=== PATIENT | female | born 1940 | race Caucasian/White ===

== ENCOUNTER 2016-11-01 11:29 | Emergency (ER) | payer MEDICARE, OTHER ==
[2016-11-01 12:38] LABS: INFLUENZA A NEGATIVE (NEGATIVE); INFLUENZA B NEGATIVE (NEGATIVE)
[2016-11-01] MEDS ORDERED: ALBUTEROL SULFATE (0.083%) 2.5 MG/3 ML NEB INH ONE (14:09)
--- NOTE | 2016-11-01 14:28 | Emergency Department Record ---
History of Present Illness - General Chief Complaint: Cough Stated Complaint: COUGHING Time Seen by Provider: 11/01/16 11:54 Source: Patient Mode of Arrival: Wheelchair Limitations: No limitations - History of Present Illness Initial Comments: pt [facility] because she had an elevated d-dimer. pt has had a cough for a few weeks that is prod green. she is sob. she has congestion. she just got back from [place]. she had 3 days in the car. MD Complaint: Cough, Nasal congestion, Rhinorrhea, Sinus pain Onset/Timin -: Week(s) Consistency: Intermittent Improves With: Nothing Worsens With: Activity Context: Recent travel Associated Symptoms: Cough, Nasal congestion, Shortness of breath Treatments Prior to Arrival: Other (pt was given breathing treatment and steroids in [facility] care) - Related Data Previous Rx's Medication Instructions Recorded Azithromycin [Zithromax] 250 mg PO DAILY #6 tab 11/01/16 Allergies Allergy/AdvReac Type Severity Reaction Status Date / Time yellow dye Allergy Intermediate NAUSEA Verified 11/01/16 11:39 adhesive tape Allergy RASH Verified 11/01/16 11:39 meperidine HCl [From Demerol] Allergy NAUSEA Verified 11/01/16 11:39 nitrofurantoin Allergy RASH Verified 11/01/16 11:39 macrocrystalline [From Macrodantin] Travel Screening - Travel/Exposure Within Last 30 Days Have you traveled within the last 30 days?: Yes Location Detail:: [place] - Travel/Exposure Within Last Year Have you traveled outside the [place] in the last year?: No - Additonal Travel Details Have you been exposed to anyone with a communicable illness?: No - Travel Symptoms Symptom Screening: None Review of Systems Reviewed: No additional complaints except as noted below Constitutional: Reports: As per HPI. Denies: Chills, Fever, Malaise, Night sweats, Weakness, Weight change Eyes: Reports: As per HPI. Denies: Eye discharge, Eye pain, Photophobia, Vision change ENT: Reports: As per HPI. Denies: Congestion, Dental pain, Ear pain, Epistaxis , Hearing loss, Throat pain Respiratory: Reports: As per HPI. Denies: Cough, Dyspnea, Hemoptysis, Stridor, Wheezes Cardiovascular: Reports: As per HPI. Denies: Arrhythmia, Chest pain, Dyspnea on exertion, Edema, Murmurs, Orthopnea, Palpitations, Paroxysmal nocturnal dyspnea, Rheumatic Fever, Syncope Endocrine: Reports: As per HPI. Denies: Fatigue, Heat or cold intolerance, Polydipsia, Polyuria Gastrointestinal: Reports: As per HPI. Denies: Abdominal pain, Constipation, Diarrhea, Hematemesis, Hematochezia, Melena, Nausea, Vomiting Genitourinary: Reports: As per HPI. Denies: Abnormal menses, Discharge, Dyspareunia, Dysuria, Frequency, Hematuria, Incontinence, Retention, Urgency Musculoskeletal: Reports: As per HPI. Denies: Arthralgia, Back pain, Gout, Joint swelling, Myalgia, Neck pain Skin: Reports: As per HPI. Denies: Bruising, Change in color, Change in hair/ nails, Lesions, Pruritus, Rash Neurological: Reports: As per HPI. Denies: Abnormal gait, Confusion, Headache, Numbness, Paresthesias, Seizure, Tingling, Tremors, Vertigo, Weakness Psychiatric: Reports: As per HPI. Denies: Anxiety, Auditory hallucinations, Depression, Homicidal thoughts, Suicidal thoughts, Visual hallucinations Hematological/Lymphatic: Reports: As per HPI. Denies: Anemia, Blood Clots, Easy bleeding, Easy bruising, Swollen glands Past Medical History - SOCIAL HISTORY Smoking Status: Never smoker Alcohol Use: Rare Drug Use: None - RESPIRATORY Hx Respiratory Disorders: No - CARDIOVASCULAR Hx Cardio Disorders: No - NEURO Hx Neuro Disorders: No - GI Hx GI Disorders: No - Hx Genitourinary Disorders: No - ENDOCRINE Hx Endocrine Disorders: No Comment:: Blood tested regularly - MUSCULOSKELETAL Hx Musculoskeletal Disorders: No - PSYCH Hx Psych Problems: No - HEMATOLOGY/ONCOLOGY Hx Hematology/Oncology Disorders: No Family Medical History Any Significant Family History?: No Family Hx Comment (NOT TO BE USED IN PLACE OF ITEMS BELOW): adopted Physical Exam - General General Appearance: Alert, Oriented x3, Cooperative, Mild distress - Head Head exam: Normal inspection - Eye Eye exam: Normal appearance, PERRL, EOMI Pupils: Normal accommodation - ENT ENT exam: Normal exam, Mucous membranes moist, Normal external ear exam, Normal orophraynx Ear exam: Normal external inspection. negative: External canal tenderness Nasal Exam: Normal inspection. negative: Discharge, Sinus tenderness Mouth exam: Normal external inspection, Tongue normal Teeth exam: Normal inspection. negative: Dental caries Throat exam: Normal inspection. negative: Tonsillar erythema, Tonsillar exudate - Neck Neck exam: Normal inspection, Full ROM. negative: Tenderness - Respiratory Respiratory exam: Respiratory distress, Wheezes - Cardiovascular Cardiovascular Exam: Normal rhythm, Normal heart sounds, Tachycardia - GI/Abdominal GI/Abdominal exam: Soft, Normal bowel sounds. negative: Tenderness - Rectal Rectal exam: Deferred - exam: Deferred - Extremities Extremities exam: Normal inspection, Full ROM, Normal capillary refill. negative: Tenderness - Back Back exam: Reports: Normal inspection, Full ROM. Denies: Muscle spasm, Rash noted, Tenderness - Neurological Neurological exam: Alert, CN II-XII intact, Normal gait, Oriented X3 - Psychiatric Psychiatric exam: Normal affect, Normal mood - Skin Skin exam: Dry, Intact, Normal color, Warm Course Vital Signs 11/01/16 14:21 Pulse Rate 102 H Respiratory 16 Rate Pulse Ox 96 Medical Decision Making - Lab Data Lab Results 11/01/16 Range/Units 12:20 Influenza Type A Ag Negative (NEGATIVE) Influenza Type B Ag Negative (NEGATIVE) Disposition Disposition: Discharge Clinical Impression: Bronchitis Disposition: Home, Self-Care Condition: (1) Good Instructions: Acute Bronchitis (ED) Additional Instructions: follow up with family doctor. return sooner if worse. Prescriptions: Azithromycin [Zithromax] 250 mg PO DAILY #6 tab Forms: Patient Portal Access
[2016-11-01] MEDS ORDERED: 0.9% SODIUM CHLORIDE 250ML BAG IV ONE (15:21)
--- NOTE | 2016-11-06 08:25 | CT ANGIOGRAM REPORT ---
EXAM: CTA OF THE CHEST HISTORY: COUGHING. TECHNIQUE: CTA of the chest was performed using pulmonary embolus protocol following IV administration of 55 ml of Omnipaque 350 contrast. Axial images were obtained in coronal and sagittal MIP reconstructions. Comparison: None. Encounter: Initial. FINDINGS: There is no intraluminal filling defect to suggest pulmonary embolus. Negative for thoracic aortic aneurysm or dissection. Mild ectasia and atheromatous change of the thoracic aorta. Nonspecific, nonenlarged mediastinal and hilar lymph nodes. Cardiomegaly. Limited evaluation of the upper abdomen shows partial visualization of a left renal cyst. Fatty infiltrative change to the liver. Hypodensity in the left hepatic lobe measuring 1.1 x 1.0 cm, likely a cyst or hemangioma in the absence of cancer history. No pneumothorax. The visualized airways are patent. The lungs are clear. IMPRESSION: 1. NEGATIVE FOR PULMONARY EMBOLUS, THORACIC AORTIC ANEURYSM, OR DISSECTION. THE LUNGS ARE CLEAR. 2. NONSPECIFIC, NONENLARGED MEDIASTINAL AND HILAR LYMPH NODES. 3. CARDIOMEGALY. 4. PARTIAL VISUALIZATION OF THE LEFT RENAL CYST. PROBABLE CYST OR HEMANGIOMA IN THE LIVER. FATTY INFILTRATIVE CHANGE TO THE LIVER. JOB [facility]BER: [id number] [facility]
== END 2016-11-01 15:56 | disposition home or self-care (01) ==
LOC: ER 11:29
DX: J20.9 Acute bronchitis, unspecified (principal); R06.02 Shortness of breath; R79.89 Other specified abnormal findings of blood chemistry
CPT/HCPCS: 99284 ×2; 85025; 80053; 87400; 85379; 71020; 71275; 94640; Q9967; J7613

== ENCOUNTER 2017-05-26 09:20 | Day surgery (SDC) | payer MEDICARE, OTHER ==
[2017-05-26] MEDS ORDERED: LIDOCAINE 2% MDV (20MG/ML) 20ML VIAL IV ONE (09:21)
[2017-05-26] MEDS ORDERED: PROPOFOL 10 MG/ML VIAL IV ONE (09:21)
[2017-05-26] MEDS ORDERED: FENTANYL PF 100MCG/2ML VIAL IV ONE (09:21)
--- NOTE | 2017-05-27 13:40 | Operative Note ---
DATE OF SURGERY: 05/26/2017 REFERRING PROVIDER: CJ Rivera PREOPERATIVE DIAGNOSIS: See below. POSTOPERATIVE DIAGNOSIS: See below. PROCEDURE: ESOPHAGOGASTRODUODENOSCOPY with biopsy. INDICATION: Right-sided abdominal pain, clinically improved. She states certain foods bother her, including certain foods and vitamins bother her. Upper endoscopy is performed at this time for further evaluation of her pain. Intravenous sedation was administered by the Department of Anesthesiology and included Diprivan titrated to effect. PROCEDURE: Following informed consent from this alert individual, including a discussion of the risks and benefits of the procedure and an opportunity for the patient to ask questions, the patient was placed in the left lateral decubitus position. An Olympus [id number] video endoscope was inserted into the esophagus without resistance. The proximal esophagus had a normal appearance with normal folds and distensibility. The distal esophagus, likewise, was free from changes. The squamocolumnar junction approximated the diaphragmatic hiatus. The structure was traversed, and the stomach was entered. The gastric fundus and pars media had a normal appearance with normal folds and distensibility. The antrum was evaluated circumferentially and demonstrates some mild erythema without ulcerations or erosions noted. Biopsies from the stomach were obtained to assess for Helicobacter pylori and check histology. The pylorus was patent. The duodenal bulb, sweep and descending duodenum were examined in a serial fashion and found to be normal. The endoscope was then withdrawn back into the body of the stomach, where retroflexion accomplished following air insufflation failed to demonstrate any additional changes. The endoscope was then straightened and withdrawn through a normal esophagus. The patient tolerated the procedure well and was returned to the recovery area in stable condition. IMPRESSION: Minimal antral gastritis, biopsies taken. Otherwise, unremarkable endoscopy. RECOMMENDATIONS: Further recommendations forthcoming pending results of biopsy obtained today. Followup also will be with CJ Rivera. As always, thank you for allowing me to participate in the care of your patient. CC: CJ Rivera
--- NOTE | 2017-05-27 13:40 | Operative Note ---
DATE OF SURGERY: 05/26/2017 REFERRING PHYSICIAN: CJ Rivera PREOPERATIVE DIAGNOSIS: See below. POSTOPERATIVE DIAGNOSIS: See below. PROCEDURE: COLONOSCOPY to the cecum with cold biopsy forceps polypectomy. INDICATION: Colorectal cancer screening, right-sided abdominal pain, family history of colon cancer (mother). Intravenous sedation was administered by the Department of Anesthesiology and included Diprivan titrated to effect. PROCEDURE: Following informed consent from this alert individual, including a discussion of the risks and benefits of the procedure and an opportunity for the patient to ask questions, the patient was placed in the left lateral decubitus position. A digital rectal examination was performed. No abnormalities were noted. Following this, an Olympus HTN255 video colonoscope was inserted into the rectum without resistance. The rectal mucosa had a normal appearance, with normal folds and distensibility. The colonoscope was advanced up through the bowel to the level of the cecum without much difficulty. Scattered diverticula were noted throughout the right and left colon. There was a 3-4 mm polyp noted in the descending colon, and this was removed with cold biopsy forceps. The cecum was defined by noting the appendiceal orifice and ileocecal valve. The colon preparation was good. Retroflexion of the cecum failed to demonstrate changes. From this point, the colonoscope was then withdrawn. No additional changes were appreciated. Retroflexion of the rectum failed to demonstrate abnormalities. Slow withdrawal through the anus demonstrated small external hemorrhoids. The instrument was removed. The patient tolerated the procedure well and was returned to the recovery area in stable condition. IMPRESSIONS: 1. A 4 mm descending colon polyp removed with biopsy forceps. 2. Gates diverticulosis. 3. Small external hemorrhoids. RECOMMENDATIONS: The patient was advised she should receive a copy of her pathology report at home in the next 2-3 weeks. If not, she was asked to call my office to review results of testing today. Further recommendations forthcoming pending those results. Followup will also be with CJ Rivera. As always, thank you for allowing me to participate in the care of your patient. CC: CJ Rivera
== END 2017-05-26 12:14 | disposition home or self-care (01) ==
LOC: HOP 09:20
PROVIDERS: ATTEND Internal Medicine Gastroenterology
DX: Z12.11 Encounter for screening for malignant neoplasm of colon (principal); Z80.0 Family history of malignant neoplasm of digestive organs; R10.13 Epigastric pain; D12.4 Benign neoplasm of descending colon; K57.30 Diverticulosis of large intestine without perforation or abscess without bleeding; K64.4 Residual hemorrhoidal skin tags; K29.60 Other gastritis without bleeding

== ENCOUNTER 2017-06-27 08:17 | Observation (INO) | payer MEDICARE, OTHER ==
[2017-06-27] MEDS ORDERED: 0.9 % SODIUM CHLORIDE 1,000 ML BAG IV ONE (08:40)
[2017-06-27] MEDS ORDERED: ONDANSETRON HCL IV 4 MG/2 ML VIAL IV ONE (08:40)
--- NOTE | 2017-06-27 08:44 | Emergency Department Record ---
History of Present Illness - General Chief complaint: Vomiting Stated complaint: VOITING, LOW BACK PAIN Time Seen by Provider: 06/27/17 08:34 Source: Patient Mode of Arrival: Ambulatory Limitations: No limitations - History of Present Illness Initial comments: The patient is here due to a 2-3 day hx of nausea, vomiting yesterday, and lower abdominal pain. The pain is crampy and intermittent and she did vomit 5 times yesterday but had a normal BM yesterday. She denies any fever, chills, dysuria, or hematuria and does have a hx of 2 C-sections and having her Appendix removed. The patient does feel the pain in the low back also at times but has no pain in the legs or any leg numbness or weakness. MD complaint: Abdominal pain, Nausea, Vomiting Onset/Timin -: Days(s) Description of Vomiting: Bilious Description of Diarrhea: Green Associated Abdominal Pain: Yes Location: LLQ, RLQ, Flank Severity: Moderate - Related Data Allergies Allergy/AdvReac Type Severity Reaction Status Date / Time yellow dye Allergy Intermediate NAUSEA Unverified 01/22/17 09:55 adhesive tape Allergy RASH Unverified 01/22/17 09:55 meperidine HCl [From Demerol] Allergy NAUSEA Unverified 01/22/17 09:55 nitrofurantoin Allergy RASH Unverified 01/22/17 09:55 macrocrystalline [From Macrodantin] ibuprofen [From Motrin] AdvReac Unknown SWELLING Unverified 05/21/17 11:08 Travel Screening - Travel/Exposure Within Last 30 Days Have you traveled within the last 30 days?: No Review of Systems Constitutional: Denies: Chills, Fever Eyes: Denies: Eye discharge ENT: Denies: Congestion Respiratory: Denies: Cough, Dyspnea Past Medical History - SOCIAL HISTORY Smoking Status: Former smoker Alcohol Use: None Drug Use: None - RESPIRATORY Hx Respiratory Disorders: No Hx Sleep Apnea: Yes Hx of CPAP: No - CARDIOVASCULAR Hx Cardio Disorders: No - NEURO Hx Neuro Disorders: No - GI Hx GI Disorders: Yes Hx Abdominal Pain: Yes Hx Rectal Bleeding: Yes Hx Ulcer: Yes Hx of Polyps: Yes - Hx Genitourinary Disorders: No - ENDOCRINE Hx Endocrine Disorders: No Comment:: Blood tested regularly - MUSCULOSKELETAL Hx Musculoskeletal Disorders: Yes Hx Arthritis: Yes (? RA) - PSYCH Hx Psych Problems: No - HEMATOLOGY/ONCOLOGY Hx Hematology/Oncology Disorders: No Family Medical History Any Significant Family History?: Yes Family Hx Comment (NOT TO BE USED IN PLACE OF ITEMS BELOW): adopted Hx Cancer: Mother *Cancer Comment: found out bio Mother-colon cancer Physical Exam - General General Appearance: Alert, Oriented x3, Cooperative, No acute distress - Head Head exam: Atraumatic, Normocephalic, Normal inspection - Eye Eye exam: Normal appearance, PERRL - Neck Neck exam: Normal inspection, Full ROM. negative: Tenderness - Respiratory Respiratory exam: Normal lung sounds bilaterally. negative: Respiratory distress - Cardiovascular Cardiovascular Exam: Regular rate, Normal rhythm, Normal heart sounds - GI/Abdominal GI/Abdominal exam: Soft, Tenderness (There is diffuse tenderness in all 4 quads. ). negative: Distended, Guarding, Rebound - Extremities Extremities exam: Normal inspection, Full ROM, Normal capillary refill. negative: Tenderness Course Vital Signs 06/27/17 08:23 Temperature 98.0 F Pulse Rate 118 H Respiratory 13 Rate Blood Pressure 127/92 Pulse Ox 94 L - Reevaluation(s) Reevaluation #1: The patient is doing much better at this time. She states her pain is much improved and she denies any nausea or vomiting presently. I did discuss the CT results and the need for admission and she did agree. 06/27/17 09:55 Reevaluation #2: I did discuss the case with Dr. Holt and he does agree to consult on the case. He will see the patient tonight or in the morning early. I also did discuss the case with Dr. Ruiz and he agrees to admit the patient. 06/27/17 10:42 Medical Decision Making - Data Complexity MDM Data: Labs Ordered and/or Reviewed, X-Ray Ordered and/or Reviewed - Lab Data Result diagrams: 06/27/17 08:43 06/27/17 08:43 - Radiology Data Radiology results: Report reviewed (CT: SBO with no perforation or abscess.) Disposition Disposition: Admit Clinical Impression: SBO (small bowel obstruction) Disposition: Still a Patient at [facility] Decision to Admit: Admit from ER Decision to Admit Date: 06/27/17 Decision to Admit Time: 10:44 Accepting Physician: Karen Time Discussed w/Accepting Physician: 10:44 Condition: (2) Stable Time of Disposition: 10:44 Quality - Quality Measures Quality Measures: N/A - Blood Pressure Screening View Details: Yes Does Patient Have Any of the Following: No Blood Pressure Classification: Hypertensive Reading Systolic Measurement: 127 Diastolic Measurement: 92 Screening for High Blood Pressure: < Pre-Hypertensive BP, F/U Documented > [ [id number]] Pre-Hypertensive Follow-up Interventions: Referral to alternative/primary care provider.
[2017-06-27 08:54] LABS: HEMOGLOBIN 16.1 gm/dl (11.6-16.0); MEAN CELL VOLUME 94.3 fl (81-97); MEAN CORPUSCULAR HEMOGLOBIN 31.6 pg (27-33); MEAN CORPUSCULAR HGB CONC 33.5 g/dl (32-36); MEAN PLATELET VOLUME 10.5 fl (7.4-10.4); PLATELET COUNT 404 K/uL (130-400); RED BLOOD COUNT 5.09 M/uL (3.80-5.40); RED CELL DISTRIBUTION WIDTH 12.9 % (11.5-14.5); WHITE BLOOD COUNT W/O DIFF 19.1 K/uL (4.2-12.2)
[2017-06-27] MEDS ORDERED: HYDROMORPHONE HCL 1MG/ML **SYRINGE IVP ONE ×2 (09:14→11:41)
[2017-06-27 09:22] LABS: BLOOD UREA NITROGEN 16 mg/dL (8-23); CREATININE 0.8 mg/dL (0.5-0.9); EST GLOMERULAR FILTRATION RATE > 60 mL/min
[2017-06-27 09:23] LABS: TOTAL PROTEIN 8.7 g/dL (6.6-8.7)
[2017-06-27 09:25] LABS: GLUCOSE,RANDOM 199 mg/dL (74-109)
[2017-06-27 09:27] LABS: ALBUMIN 4.6 g/dL (4.0-5.0); ALT/SGPT 39 U/L (<33); AST/SGOT 27 U/L (10.0-35.0); BILIRUBIN,DIRECT 0.2 mg/dL (0-0.3)
[2017-06-27 09:28] LABS: ALKALINE PHOSPHATASE 79 U/L (35-104); LIPASE 19 U/L (13-60)
--- NOTE | 2017-06-27 10:04 | CT SCAN REPORT ---
EXAM: CT OF THE ABDOMEN AND PELVIS WITHOUT CONTRAST HISTORY: LOWER ABDOMINAL PAIN, BILATERAL FLANK PAIN, NAUSEA AND VOMITING FOR TWO DAYS. APPENDECTOMY. TECHNIQUE: Axial CT scan of the abdomen and pelvis was performed without oral or IV contrast. Comparison: No prior CT abdomen and pelvis with which to compare. FINDINGS: No calcified gallstones are seen within the gallbladder. No intrarenal calculi is seen on either side. No hydronephrosis or hydroureter is seen on either side. No ureteral calculus seen on either side and no bladder calculus evident. Evaluation of the bowel and viscera is very limited without oral or IV contrast. There is a single small low attenuation mass left lobe of the liver approximately 11 mm in size. This appears essentially unchanged from a prior CTA of the chest dated 11/01/16 and is presumably a small cyst or hemangioma as previously reported. The previously noted cyst partially seen in the upper pole of the left kidney on the prior chest CTA is seen in its entirety today and measures about 2.4 cm in size, incompletely evaluated today without IV contrast, but having a noncontrast CT density of 9 consistent with a cyst. Given the limitations of lack of contrast, no additional hepatic or left renal mass seen. No definite splenic, pancreatic, right renal, or adrenal mass identified. There is moderate diverticulosis in the left side of the colon and less so in the right side of the colon as well, but no definite diverticulitis evident. The appendix is not identified consistent with the surgical history. There is dilatation of the jejunum measuring up to about 4 cm in diameter. There appears to be a point of transition in the low abdomen anteriorly and the distal small bowel is nondilated. Findings are consistent with small bowel obstruction, the etiology which is not clearly seen. There is a history of appendectomy and perhaps this is on the basis of adhesions. Tiny periumbilical anterior abdominal wall hernia containing adipose tissue, but no bowel. No free intraperitoneal air or free intraperitoneal fluid identified. Facet joint arthropathy in the lower lumbar spine. IMPRESSION: 1. POSTOP APPENDECTOMY. 2. APPEARANCE CONSISTENT WITH SMALL BOWEL OBSTRUCTION WITH THE POINT OF TRANSITION IN THE LOW ABDOMEN ANTERIORLY, OF UNCERTAIN ETIOLOGY. 3. DIVERTICULOSIS IN THE COLON PREDOMINANTLY THE LEFT SIDE OF THE COLON, BUT NO DIVERTICULITIS EVIDENT. 4. STABLE 11 MM LOW ATTENUATION MASS LEFT LOBE OF THE LIVER COMPARED WITH , PRESUMABLY A SMALL CYST OR HEMANGIOMA. 5. APPROXIMATELY 2.4 CM LOW ATTENUATION MASS UPPER POLE LEFT KIDNEY IS PRESUMABLY A CYST. THIS IS INCOMPLETELY EVALUATION WITHOUT IV CONTRAST. 6. DEGENERATIVE CHANGE IN THE FACETS OF THE LOWER LUMBAR SPINE. [facility]: [id number] [facility]
--- NOTE | 2017-06-27 11:13 | History & Physical ---
History of Present Illness - Date of Service Date of Service for History & Physical: 06/27/17 - History of Present Illness Admitting Diagnosis: SBO History of Present Illness: Mrs. Nino is a 77 y/o female who is here today due to nausea, vomiting and abdominal pain. The patient describes lower abdominal pain 101/10 in severity which began yesterday while at home. She says that her pain was sharp with radiation to back and followed by five episodes of clear-brown vomit. The patient denies any constipation or diarrhea and says that her last bowel movement which was yesterday morning was normal in consistency any color. She recently had a colonoscopy which she says findings were normal. She is a [facility] patient and her recent labs show elevated liver enzymes and Hba1c 6 but she is not any medications. On arrival to ED the patient's WBC is 19, lactate acid 2.0, and lipase 19. CT abdomen w/o contrast reports small bowel obstruction and diverticulosis. The patient has been started on IV fluids, IV Diluadid, zofran and protonix. General surgery has been consulted for recommendations. Travel Screening - Travel/Exposure Within Last 30 Days Have you traveled within the last 30 days?: No Review of Systems Constitutional: Denies: Chills, Fever Eyes: Denies: Eye discharge ENT: Denies: Congestion Respiratory: Denies: Cough, Dyspnea Gastrointestinal: Reports: Abdominal pain, Nausea, Vomiting. Denies: Constipation, Diarrhea Past Medical History - SOCIAL HISTORY Smoking Status: Former smoker Alcohol Use: None Drug Use: None - RESPIRATORY Hx Respiratory Disorders: No Hx Sleep Apnea: Yes Hx of CPAP: No - CARDIOVASCULAR Hx Cardio Disorders: No - NEURO Hx Neuro Disorders: No - GI Hx GI Disorders: Yes Hx Abdominal Pain: Yes Hx Rectal Bleeding: Yes Hx Ulcer: Yes Hx of Polyps: Yes - Hx Genitourinary Disorders: No - ENDOCRINE Hx Diabetes: Yes Comment:: Blood tested regularly - MUSCULOSKELETAL Hx Musculoskeletal Disorders: Yes Hx Arthritis: Yes (? RA) - PSYCH Hx Psych Problems: No - HEMATOLOGY/ONCOLOGY Hx Hematology/Oncology Disorders: No Family Medical History Any Significant Family History?: Yes Family Hx Comment (NOT TO BE USED IN PLACE OF ITEMS BELOW): adopted Hx Cancer: Mother *Cancer Comment: found out bio Mother-colon cancer H&P Meds/Allergies - Allergies Allergies: Allergies Allergy/AdvReac Type Severity Reaction Status Date / Time yellow dye Allergy Intermediate NAUSEA Unverified 01/22/17 09:55 adhesive tape Allergy RASH Unverified 01/22/17 09:55 meperidine HCl [From Demerol] Allergy NAUSEA Unverified 01/22/17 09:55 nitrofurantoin Allergy RASH Unverified 01/22/17 09:55 macrocrystalline [From Macrodantin] ibuprofen [From Motrin] AdvReac Unknown SWELLING Unverified 05/21/17 11:08 Physical Exam - Vital Signs Vital Signs: Vital Signs - Last 24 Hrs Temp Pulse Pulse Resp BP BP Pulse Ox 06/27/17 09:47 91 H 18 134/71 94 L 06/27/17 08:23 98.0 F 118 H 13 127/92 94 L - General General Appearance: Alert, Oriented x3, Cooperative, No acute distress Limitations: No limitations - Head Head exam: Atraumatic, Normocephalic, Normal inspection Head exam detail: negative: Abrasion, Contusion - Eye Eye exam: Normal appearance, PERRL Pupils: Normal accommodation - ENT ENT exam: Normal exam, Mucous membranes moist, Normal external ear exam, Normal orophraynx, TM's normal bilaterally Nasal Exam: Normal inspection. negative: Discharge, Sinus tenderness Mouth exam: Normal external inspection, Tongue normal Teeth exam: Normal inspection. negative: Dental caries Throat exam: Normal inspection. negative: Tonsillar erythema, Tonsillar exudate - Neck Neck exam: Normal inspection, Full ROM. negative: Tenderness - Respiratory Respiratory exam: Normal lung sounds bilaterally. negative: Respiratory distress - Cardiovascular Cardiovascular Exam: Regular rate, Normal rhythm, Normal heart sounds Peripheral Pulses: 2+: Radial (R), Radial (L), Dorsalis Pedis (R), Dorsalis Pedis (L) - GI/Abdominal GI/Abdominal exam: Soft, Diminished bowel sounds, Tenderness (There is diffuse tenderness in all 4 quads.). negative: Distended, Guarding, Rebound, Rigid - Rectal Rectal exam: Deferred - exam: Deferred - Extremities Extremities exam: Normal inspection, Full ROM, Normal capillary refill. negative: Tenderness - Neurological Neurological exam: Alert, CN II-XII intact, Oriented X3 - Psychiatric Psychiatric exam: Normal affect, Normal mood - Skin Skin exam: Dry, Intact, Normal color, Warm Results - Labs Result Diagrams: 06/27/17 08:43 06/27/17 08:43 Labs Last 24 Hours: Laboratory Results - last 24 hr 06/27/17 06/27/17 06/27/17 08:43 08:43 09:05 WBC 19.1 H RBC 5.09 Hgb 16.1 H Hct 48.0 H MCV 94.3 MCH 31.6 MCHC 33.5 RDW 12.9 Plt Count 404 H MPV 10.5 H Neutrophils % 80.0 Eosinophils % Not Reportable Basophils % Not Reportable Lymphocytes 15.0 L Monocytes 5.0 Sodium 138 Potassium 4.0 Chloride 93 L Carbon Dioxide 28.0 Anion Gap 17.0 H BUN 16 Creatinine 0.8 Estimated GFR > 60 Random Glucose 199 H Lactic Acid 2.0 Calcium 10.3 H Total Bilirubin 1.10 H Direct Bilirubin 0.2 AST 27 ALT 39 H Alkaline Phosphatase 79 Total Protein 8.7 Albumin 4.6 Lipase 19 VTE H&P Assessment - Risk for VTE Risk for VTE: Yes Risk Level: Low Risk Assessment Date: 06/27/17 Risk Assessment Time: 11:57 VTE Orders Placed or Will Be Placed: No VTE Reason for No Prophylaxis: Not Indicated (pt ambulatory no comorbidities ) Plan - Detailed Diagnosis and Plan (1) SBO (small bowel obstruction) Current Visit: Yes Status: Acute Base Code: K56.609 - UNSP INTESTNL OBST, UNSP TO PARTIAL VERSUS COMPLETE OBST Comment: - CT abdomen - small bowel obstruction and diverticulosis. - cont IVF: Nacl 0.9% @ 125mL/hr, zofran 4mg Q4H PRN, Dilaudid 0.5mg Q4H, Protonix 40mg QD - NPO, advance diet as tolerated. Surgery consult pending. (2) Diabetes type 2, uncontrolled Current Visit: Yes Status: Acute Qualifiers: Diabetes mellitus complication status: with ophthalmic complications Diabetes mellitus complication detail: with cataract Diabetes mellitus fci insulin use: without assistant terminal manager use Qualified Code(s): E11.36 - Type 2 diabetes mellitus with diabetic cataract; E11.65 - Type 2 diabetes mellitus with hyperglycemia; E11.65 - Type 2 diabetes mellitus with hyperglycemia; E11.65 - Type 2 diabetes mellitus with hyperglycemia; E11.65 - Type 2 diabetes mellitus with hyperglycemia Base Code: E11.65 - TYPE 2 DIABETES MELLITUS WITH HYPERGLYCEMIA Comment: - Hba1c 6, serum glucose 199, inpatient goal 140-180 - not on any glycemic medications at this time. - will order sliding scale and initiate PO meds on d/c. - accuchecks Q12H (3) Full code status Current Visit: Yes Status: Acute Base Code: Z78.9 - OTHER SPECIFIED HEALTH STATUS Comment: FULL CODE - Disposition Pending surgical consult, bowel rest and pain control.
[2017-06-27 12:06] LABS: URINE APPEARANCE CLEAR; URINE BILIRUBIN SMALL (NEGATIVE); URINE BLOOD NEGATIVE (NEGATIVE); URINE COLOR YELLOW; URINE GLUCOSE (UA) NEGATIVE (NEGATIVE); URINE KETONE NEGATIVE (NEGATIVE); URINE LEUKOCYTE ESTERASE NEGATIVE (NEGATIVE); URINE NITRITE NEGATIVE (NEGATIVE); URINE PROTEIN NEGATIVE (NEGATIVE); URINE UROBILINOGEN 0.2 E.U./dL (0.20 - 1.00)
[2017-06-27] MEDS ORDERED: ONDANSETRON HCL IV 4 MG/2 ML VIAL IVP PRN (12:16)
[2017-06-27] MEDS: 0.9 % SODIUM CHLORIDE 1000ML 1,000 ML IV PRN ×2 (12:33→20:58)
[2017-06-27] MEDS: PANTOPRAZOLE SODIUM IV 40 MG VIAL IV SCH (12:35)
[2017-06-27] MEDS: HYDROMORPHONE HCL 1MG/ML **SYRINGE IVP PRN ×2 (16:43→22:38)
[2017-06-28] MEDS: 0.9 % SODIUM CHLORIDE 1000ML 1,000 ML IV PRN (04:54)
[2017-06-28 06:13] LABS: BASO % 0.2 % (0-6); EOS % 2.2 % (0-6); GRAN % 70.4 % (47-80); HEMATOCRIT 37.6 % (35.0-47.0); LYMPH % 20.9 % (16-45); MEAN CELL VOLUME 96.7 fl (81-97); MEAN CORPUSCULAR HEMOGLOBIN 30.8 pg (27-33); MEAN CORPUSCULAR HGB CONC 31.9 g/dl (32-36); MEAN PLATELET VOLUME 10.5 fl (7.4-10.4); MONO % 6.3 % (0-9); PLATELET COUNT 301 K/uL (130-400); RED BLOOD COUNT 3.89 M/uL (3.80-5.40); RED CELL DISTRIBUTION WIDTH 12.8 % (11.5-14.5)
[2017-06-28 06:28] LABS: BLOOD UREA NITROGEN 12 mg/dL (8-23); CREATININE 0.6 mg/dL (0.5-0.9); EST GLOMERULAR FILTRATION RATE > 60 mL/min; GLUCOSE,RANDOM 124 mg/dL (74-109)
--- NOTE | 2017-06-28 10:59 | Discharge Summary ---
Providers Discharge Summary Date: 06/28/17 Date of admission: 06/27/17 12:05 Attending physician: Tam Jones Primary care physician: Pallavi Sahni Physical Exam - Vital Signs Vital Signs: Vital Signs - Last 24 Hrs Temp Pulse Resp BP BP Pulse Ox 06/28/17 10:00 98 F 75 18 113/70 94 L 06/28/17 06:00 98.9 F 79 16 94/58 93 L 06/27/17 21:00 98.4 F 81 16 105/67 94 L 06/27/17 18:16 97.7 F 80 16 103/66 94 L 06/27/17 14:16 97.7 F 79 19 94/56 93 L 06/27/17 12:16 97.7 F 85 18 117/87 93 L 06/27/17 12:07 89 18 117/70 92 L - General General Appearance: Alert, Oriented x3, Cooperative, No acute distress Limitations: No limitations - Head Head exam: Atraumatic, Normocephalic, Normal inspection Head exam detail: negative: Abrasion, Contusion - Eye Eye exam: Normal appearance, PERRL Pupils: Normal accommodation - ENT ENT exam: Normal exam, Mucous membranes moist, Normal external ear exam, Normal orophraynx, TM's normal bilaterally Nasal Exam: Normal inspection. negative: Discharge, Sinus tenderness Mouth exam: Normal external inspection, Tongue normal Teeth exam: Normal inspection. negative: Dental caries Throat exam: Normal inspection. negative: Tonsillar erythema, Tonsillar exudate - Neck Neck exam: Normal inspection, Full ROM. negative: Tenderness - Respiratory Respiratory exam: Normal lung sounds bilaterally. negative: Respiratory distress - Cardiovascular Cardiovascular Exam: Regular rate, Normal rhythm, Normal heart sounds Peripheral Pulses: 2+: Radial (R), Radial (L), Dorsalis Pedis (R), Dorsalis Pedis (L) - GI/Abdominal GI/Abdominal exam: Soft, Normal bowel sounds, Tenderness (mild tenderness o nthe right). negative: Distended, Guarding, Rebound - Rectal Rectal exam: Deferred - exam: Deferred - Extremities Extremities exam: Normal inspection, Full ROM, Normal capillary refill. negative: Tenderness - Neurological Neurological exam: Alert, CN II-XII intact, Oriented X3 - Psychiatric Psychiatric exam: Normal affect, Normal mood - Skin Skin exam: Dry, Intact, Normal color, Warm Hospitalization - Hospitalization Admission Diagnosis: 1. Small Bowel Obstruction - Problem List/Discharge Diagnosis (1) SBO (small bowel obstruction) Plan: - CT abdomen - small bowel obstruction and diverticulosis. - cont IVF: Nacl 0.9% @ 125mL/hr, zofran 4mg Q4H PRN, Dilaudid 0.5mg Q4H, Protonix 40mg QD - NPO, advance diet as tolerated. Surgery evaluated this am. Advancing diet to clear liquids. Pt had a bowel movement this am. Current Visit: Yes Status: Acute Base Code: K56.609 - UNSP INTESTNL OBST, UNSP TO PARTIAL VERSUS COMPLETE OBST Comment: - CT abdomen - small bowel obstruction and diverticulosis. - cont IVF: Nacl 0.9% @ 125mL/hr, zofran 4mg Q4H PRN, Dilaudid 0.5mg Q4H, Protonix 40mg QD - NPO, advance diet as tolerated. Surgery evaluated this am. Advancing diet to clear liquids. Pt had a bowel movement this am. (2) Diabetes type 2, uncontrolled Current Visit: Yes Status: Acute Base Code: E11.65 - TYPE 2 DIABETES MELLITUS WITH HYPERGLYCEMIA (3) Full code status Current Visit: Yes Status: Acute Base Code: Z78.9 - OTHER SPECIFIED HEALTH STATUS - Disposition Pending surgical consult, bowel rest and pain control. - Hospitalization Course Hospital Course: Mrs. Nino is a 77 y/o female who is here today due to nausea, vomiting and abdominal pain. The patient describes lower abdominal pain 101/10 in severity which began yesterday while at home. She says that her pain was sharp with radiation to back and followed by five episodes of clear-brown vomit. The patient denies any constipation or diarrhea and says that her last bowel movement which was yesterday morning was normal in consistency any color. She recently had a colonoscopy which she says findings were normal. She is a [facility] patient and her recent labs show elevated liver enzymes and Hba1c 6 but she is not any medications. On arrival to ED the patient's WBC is 19, lactate acid 2.0, and lipase 19. CT abdomen w/o contrast reports small bowel obstruction and diverticulosis. The patient has been started on IV fluids, IV Diluadid, zofran and protonix. General surgery has been consulted for recommendations. 06/28 - repeat labs WBC 13, glucose 124. Patient resting comfortably in bed this morning. She had a bowel movement early this morning which she describes as being 'pebble' like. She denies any pain or blood with stool. Surgery evaluated this am after ordering 2 view abdominal xray. Which shows fecal matter but no significant obstruction. Diet was advanced and patient was able to tolerate without pain, nausea or vomiting. Procedures: Imaging and X-Rays 06/28/17 09:03 ABDOMEN 2 VIEW [RAD] Stat Abnormal Labs: Abnormal Lab Results 06/28/17 06/28/17 Range/Units 06:00 06:00 WBC 13.0 H (4.2-12.2) K/uL MCHC 31.9 L (32-36) g/dl MPV 10.5 H (7.4-10.4) fl Random Glucose 124 H (74-109) mg/dL Calcium 8.0 L (8.8-10.2) mg/dL Condition at Discharge: (2) Stable Discharge Medications - Discharge Medications Prescriptions: Ondansetron HCl [Zofran] 4 mg PO Q4H PRN #10 tablet PRN Reason: Nausea/Vomiting Pantoprazole Sodium [Protonix] 20 mg PO DAILY #10 tablet. Home Medications: Ambulatory Orders Acetaminophen 1,000 mg PO QD PRN tab 05/21/17 [Last Taken Unknown] Ondansetron HCl [Zofran] 4 mg PO Q4H PRN #10 tablet 06/28/17 [Last Taken Unknown ] Pantoprazole Sodium [Protonix] 20 mg PO DAILY #10 tablet. 06/28/17 [Last Taken Unknown] Discharge Plan - Discharge Instructions Activity at Discharge: Resume Usual Activities As Tolerated Diet at Discharge: Regular Diet, Diabetic Diet Additional Instructions: Patient to follow up with Dr. Ruiz in clinic within one week. Home scripts sent to [facility] pharmacy: Zofran 4mg Q4H PRN tab and Protonix 20mg QD, 10 tabs. Advised to return to ED if symptoms recur over the next 24-48 hours. Quality Measures - Quality Measures Quality Measures: Advance Directives, Documentation of Current Medications in Medical Record, Elder Maltreatment Screen and Follow-Up Plan, Screening for High Blood Pressure and F/U Documented - Current Medications Quality Measure: Measure #130: Documentation of Current Medications Documentation of Current Medications: <Current Medications Documented/Reviewed> [G5812] - Blood Pressure Screening Quality Measure: Screening for High Blood Pressure and Follow-Up Documented Does Patient Have Any of the Following: No Blood Pressure Classification: Hypertensive Reading Systolic Measurement: 127 Diastolic Measurement: 92 Screening for High Blood Pressure: < Normal BP, F/U Not Required > [G3120] - Advance Directives Quality Measure: Measure #47: Care Plan Advance Directives Established: No Advance Directives Information Provided To Patient: No Advance Directives on File: No Living Will: Yes Power of [place] Head: Yes Power of [place] Head Name: Salvador Nino Advance Care Planning: Not Discussed or Documented [[id number]] - Elder Abuse Suspicion Index Screening: Elder Abuse Suspicion Index Screening Rely on people for bathing, dressing, shopping, banking, etc: No Prevented from getting food, clothes, medication, etc: No Made to feel shamed or threatened by someone: No Forced to sign papers or use money against will: No Feel afraid, touched in ways not wanted or hurt physically: No Poor eye contact, withdrawn, malnourished, cuts or bruises: No Screening Result: Negative result EASI Reference Information: Mckay HDEZ, Bay C, Rico D, Mckenzie M.Development and validation of a tool to assist physicians identification of elder abuse: The Elder Abuse Suspicion Index (EASI ). Journal of Elder Abuse and Neglect, 2008; 20 (3): 276-300. - Elder Maltreatment Screen Quality Measures: Elder Maltreatment Screen and Follow-Up Plan Elder Maltreatment Screen: <Negative, No Follow-Up Plan Required> [G8734]
[2017-06-28] MEDS: PANTOPRAZOLE SODIUM IV 40 MG VIAL IV SCH (11:02)
--- NOTE | 2017-06-29 19:27 | RADIOLOGY REPORT ---
EXAM: ABDOMEN 2 VIEW HISTORY: ABDOMINAL PAIN. TECHNIQUE: Supine and upright views of the abdomen were performed. FINDINGS: Nonspecific, nonobstructive bowel gas pattern. No evidence of free air. No radiopaque densities. IMPRESSION: NO ACUTE ABDOMINAL DISEASE PROCESS. JOB NUMBER: [id number] MTDD
--- NOTE | 2017-06-30 07:10 | Medical Records Consult ---
DATE OF SERVICE: 06/28/2017. DATE OF CONSULTATION: 06/28/2017. REASON FOR CONSULTATION: Small bowel obstruction. INDICATIONS: The patient is a 77-year-old female who had a 2-3 day history of nausea, vomiting, and abdominal pain. She was seen in [facility] ER yesterday, where a full workup was done. This did show leukocytosis of 19,[address] scan that did show findings consistent with a small bowel obstruction. Since being admitted, she feels much better. She had had no nausea, no vomiting. She had a bowel movement this morning and is hungry. Followup flat plate and upright do show gas and stool in her colon. PAST MEDICAL HISTORY: Sleep apnea, hypertension. PAST SURGICAL HISTORY: x 2. She did have an appendectomy at 1 of the operations. She has currently been n.p.o. ALLERGIES: ADHESIVE TAPE, DEMEROL, and IBUPROFEN. CURRENT MEDICATIONS: 1. Dilaudid. 2. Zofran. 3. Protonix. SOCIAL HISTORY: She denies any tobacco or alcohol use. PHYSICAL EXAMINATION: VITAL SIGNS: Stable. She is afebrile. HEART: Irregular. LUNGS: Decreased. ABDOMEN: Soft. Minimal tenderness diffusely. There is no guarding or rebound. No peritoneal signs. Bowel sounds are noted. IMAGING DATA: I did review both her CT scan and followup x-rays this morning. IMPRESSION: Partial small bowel obstruction, resolving. Currently the patient is stable. Would start a clear liquid diet and follow her clinically. If she tolerates this, this can be advanced as tolerated. Thank you for allowing me to participate in the care of your patient. Please do not hesitate to contact me if I can be of further assistance. RIMA
== END 2017-06-28 15:40 | disposition home or self-care (01) ==
LOC: ER 08:17 → INTOOBSV 12:05 → MEDSURG 12:05
PROVIDERS: ADMIT Internal Medicine; ATTEND Internal Medicine
DX: K56.600 Partial intestinal obstruction, unspecified as to cause (principal); R11.2 Nausea with vomiting, unspecified; I10 Essential (primary) hypertension; E11.65 Type 2 diabetes mellitus with hyperglycemia; Z87.891 Personal history of nicotine dependence
CPT/HCPCS: 99285 ×2; 96374; 96375; 83605; 83690; 85025; 80076; 80048 ×2; 81003; 85027; 74020; 74176; G0378 ×2; J2405; J1170; 99217; 99220; C9113; J7030

== ENCOUNTER 2019-04-08 06:26 | Day surgery (SDC) | payer MEDICARE, OTHER ==
[2019-04-08] MEDS ORDERED: PROPOFOL 10 MG/ML VIAL IV ONE (06:27)
[2019-04-08] MEDS ORDERED: LIDOCAINE 1% MPF 100MG/10ML STERILE-PAK AMPULE IV ONE (06:27)
[2019-04-08] MEDS ORDERED: MIDAZOLAM HCL 2MG/2ML VIAL IV ONE (06:27)
[2019-04-08] MEDS ORDERED: LIDOCAINE 2% MDV (20MG/ML) 20ML VIAL IV ONE (06:27)
[2019-04-08] MEDS ORDERED: 0.9 % SODIUM CHLORIDE 1000ML 500 ML IV ONE (07:21)
[2019-04-08] MEDS ORDERED: LIDOCAINE 2% MDV (20MG/ML) 20ML VIAL INJ ONE (08:46)
[2019-04-08] MEDS ORDERED: TETRACAINE HCL 0.5% OPTH 2ML SOLU OPTH ONE (08:46)
[2019-04-08] MEDS ORDERED: BRIMONIDINE TARTRATE 0.2% OPTHALMIC DROPS OP ONE (08:47)
[2019-04-08] MEDS ORDERED: TIMOLOL MALEATE 0.5% 5ML BTL OPTH ONE (08:47)
[2019-04-08] MEDS ORDERED: EPINEPHRINE 1 MG/ML AMPUL IO ONE (08:47)
[2019-04-08] MEDS ORDERED: NEOM/BACI/POLY/HC 3.5 GM OPTH OINT OPTH ONE (08:47)
--- NOTE | 2019-04-09 20:20 | Operative Note ---
DATE OF PROCEDURE: 04/08/19. PREOPERATIVE DIAGNOSIS: Nuclear sclerotic cataract, left eye. POSTOPERATIVE DIAGNOSIS: Nuclear sclerotic cataract, left eye. OPERATION: Phacoemulsification of cataractous lens with implantation of intraocular lens. LENS IMPLANT USED: [employer] Model PCB00 + 20.5 diopters. COMPLICATIONS: None. PROCEDURE IN DETAIL: Following a retrobulbar and facial block, the patient was prepped and draped in the usual fashion for eye surgery. A lid speculum was placed in the left eye after which a 2.4 mm tunnel wound was placed at the temporal limbus and dissected into clear cornea. A paracentesis was placed at 2 o'clock hours to the left and right of the initial incision and the chamber deepened with Viscoelastic. The keratome was then used to enter the anterior chamber after which the continuous circular capsulorrhexis was accomplished without difficulty using a bent needle and a Utrata forceps. Hydrodissection and hydrodelineation of the lens was performed after which the nucleus of the lens was removed using the Phaco handpiece in the [id number] technique. The residual cortical material was irrigated and aspirated from the eye after which the bag and chamber were re-examined. The bag was re-inflated with Viscoelastic and the intraocular lens injected into the capsular bag where it centered well. The Viscoelastic was then copiously irrigated and aspirated from the eye after which the temporal tunnel wound and paracentesis were hydrated and the wounds were examined. They were noted to be watertight. The lid speculum was removed from the eye and the eye patched and shielded. The patient was transferred to the recovery room in satisfactory condition and given an appointment to be reexamined in the clinic later today or as directed by Dr. Nolan. JOB NUMBER: [id number] MTDD
== END 2019-04-08 09:27 | disposition home or self-care (01) ==
LOC: SUR 06:26
PROVIDERS: ATTEND Ophthalmology
DX: H25.12 Age-related nuclear cataract, left eye (principal); E11.9 Type 2 diabetes mellitus without complications; I10 Essential (primary) hypertension; G47.33 Obstructive sleep apnea (adult) (pediatric); E66.9 Obesity, unspecified
CPT/HCPCS: J0171; J3490; J7030